=== PATIENT | male | born 1990 | race African-American/Black ===

== ENCOUNTER 2016-12-06 22:50 | Emergency (ER) | payer BC ==
[~2016-12-06] VITALS: Ht 180.3 cm; Wt 158.3 kg
[~2016-12-06 22:50] MED LIST: PREDNISONE50 MG PO; PROAIR HFA8.5 GM IH
[2016-12-07] MEDS ORDERED: PREDNISONE20 MG PO (02:31)
[2016-12-07 02:41] VITALS: BP 153/62
== END 2016-12-07 02:43 | disposition home or self-care (01) ==
LOC: EME 22:50
DX: J45.901 Unspecified asthma with (acute) exacerbation (principal)
CPT/HCPCS: 71020; 94640; 99281; 99285; J3475; J7512

== ENCOUNTER 2017-07-28 21:56 | Observation (INO) | payer BC ==
[~2017-07-28] VITALS: Ht 180.3 cm; Wt 161.5 kg
[~2017-07-28 21:56] MED LIST changes: +PREDNISONE20 MG PO
[2017-07-29] MEDS ORDERED: PHENTERMINE HCL15 MG PO (00:15)
[2017-07-29] MEDS ORDERED: METFORMIN HCL500 MG PO (00:15)
[2017-07-29] MEDS ORDERED: SIMVASTATIN40 MG PO (00:16)
[2017-07-29] MEDS ORDERED: PULMICORT FLE180 MCG IH (00:17)
[2017-07-29 02:44] VITALS: BP 130/55
[2017-07-29 05:20] LABS: TROP-I INTERPRETATION NEGATIVE; TROPONIN-I < 0.01 ng/mL (0.0-0.30)
[2017-07-29 08:43] VITALS: BP 133/59
[2017-07-29 11:10] VITALS: BP 132/72
[2017-07-29 12:01] LABS: TROP-I INTERPRETATION NEGATIVE; TROPONIN-I < 0.01 ng/mL (0.0-0.30)
[2017-07-29 16:05] VITALS: BP 148/66
[2017-07-29 19:20] VITALS: BP 144/63
[2017-07-30 00:18] VITALS: BP 139/58
[2017-07-30 06:37] LABS: HEMATOCRIT 45.2 % (38.0-50.0); HEMOGLOBIN 14.8 G/DL (12.5-16.6); MCHC 32.7 G/DL (30.0-36.0); MCV 85.4 FL (86-99); PLATELET COUNT 239 K/uL (156-360); RBC DIS.WIDTH-CV 13.3 % (11.8-14.6); RBC DIS.WIDTH-SD 41.8 % (39-53); RED BLOOD COUNT 5.29 M/uL (4.00-5.50); WHITE BLOOD COUNT 20.1 K/uL (4.1-10.2)
[2017-07-30 06:57] LABS: CHLORIDE 105 MEQ/L (99-109); GFR ESTIMATE (CALCULATED) > 59 mL/min/ (58.99-99999); GLUCOSE 230 mg/dL (70-99); POTASSIUM 4.2 MEQ/L (3.7-5.4); SODIUM 135 MEQ/L (136-147); UREA NITROGEN (BUN) 16 mg/dL (9-23)
[2017-07-30 08:21] VITALS: BP 127/61
[2017-07-30] MEDS ORDERED: BENADRYL25 MG PO (09:30)
[2017-07-30] MEDS ORDERED: MEDROL DOSEPAK4 MG PO (09:30)
[2017-07-30] MEDS ORDERED: EPINEPHRIN0.15 MG/0. IM (09:33)
== END 2017-07-30 15:04 | disposition home or self-care (01) ==
LOC: EME 21:56 → EDOF 07-29 01:22 → ENRESERV 07-29 01:25 → 5WEST 07-29 02:41
PROVIDERS: Hospitalist
DX: T78.1XXA Other adverse food reactions, not elsewhere classified, initial encounter (principal); H57.8 Other specified disorders of eye and adnexa; R07.89 Other chest pain; R06.02 Shortness of breath; J45.909 Unspecified asthma, uncomplicated; E11.9 Type 2 diabetes mellitus without complications; E78.5 Hyperlipidemia, unspecified; Z79.84 Long term (current) use of oral hypoglycemic drugs; Z88.8 Allergy status to other drugs, medicaments and biological substances
CPT/HCPCS: 80048; 82948; 84484; 85027; 94640; 94640 76; 99202; 99281; 99285; G0378; J1200; J1650; J1815; J2920; J2930; J7030; S0028

== ENCOUNTER 2017-12-08 21:52 | Emergency (ER) | payer BC ==
[~2017-12-08] VITALS: Ht 180.3 cm; Wt 156.8 kg
[~2017-12-08 21:52] MED LIST changes: +BENADRYL25 MG PO; +EPINEPHRIN0.15 MG/0. IM; +MEDROL DOSEPAK4 MG PO; +METFORMIN HCL500 MG PO; +PHENTERMINE HCL15 MG PO; +PULMICORT FLE180 MCG IH; +SIMVASTATIN40 MG PO
[2017-12-08 22:29] LABS: HEMATOCRIT 47.5 % (38.0-50.0); HEMOGLOBIN 16.2 G/DL (12.5-16.6); MCH 28.9 PG (29.0-34.0); MCHC 34.1 G/DL (30.0-36.0); MCV 84.7 FL (86-99); PLATELET COUNT 195 K/uL (156-360); RBC DIS.WIDTH-CV 13.3 % (11.8-14.6); RBC DIS.WIDTH-SD 41.2 % (39-53); RED BLOOD COUNT 5.61 M/uL (4.00-5.50); WHITE BLOOD COUNT 10.3 K/uL (4.1-10.2)
[2017-12-08 22:42] LABS: CHLORIDE 105 mEq/L (99-109); POTASSIUM 4.2 mEq/L (3.7-5.4); SODIUM 141 mEq/L (136-147)
[2017-12-08 22:44] LABS: GLUCOSE 106 mg/dL (70-99)
[2017-12-08 22:48] LABS: CREATININE 1.3 mg/dL (0.6-1.3); GFR ESTIMATE (CALCULATED) > 59 mL/min/ (58.99-99999)
[2017-12-08 22:49] LABS: UREA NITROGEN (BUN) 15 mg/dL (9-23)
[2017-12-09 01:20] VITALS: BP 126/72
[2017-12-09] MEDS ORDERED: PREDNISONE20 MG PO (01:35)
== END 2017-12-09 02:25 | disposition home or self-care (01) ==
LOC: EME 21:52
PROVIDERS: Physician Assistant
DX: J45.901 Unspecified asthma with (acute) exacerbation (principal); I10 Essential (primary) hypertension; E78.5 Hyperlipidemia, unspecified; R73.03 Prediabetes; Z79.84 Long term (current) use of oral hypoglycemic drugs
CPT/HCPCS: 71046; 80048; 85027; 94640; 94644; 99281; 99285; J2930; J3475